=== PATIENT | male | born 1960 | race African-American/Black ===

== ENCOUNTER 2020-09-13 13:54 | Emergency (ER) | payer OTHER, MEDICAID ==
[~2020-09-13] VITALS: Ht 185.4 cm; Wt 89.9 kg
--- NOTE | 2020-09-13 14:26 | PHYS DOC ---
Past Medical History Past Medical History: HIV General Adult EDM: Chief Complaint: NECK PAIN HPI: HPI: Patient is a 60 year old male patient with history of HIV, lymphedema to the right lower extremity, who presents to the ED today complaining of moderate posterior neck pain and generalized headache, symptoms began yesterday when he got up. Patient describes the pain as sharp and constant. Denies anything relieving the pain, states the pain is worse when he rotates his neck. He is very upset with the triage questions refusing to answer some of them. He states his pain is similar to the last time he was tested for meningitis which was years ago and ended up positive for HIV but negative for meningitis. He states he does not have a primary care doctor neither does he have a doctor caring for his HIV but states usually sends him medicines for HIV. Denies any injury. Denies any pain radiating to bilateral upper extremities. Denies any chest pain or shortness of breath. States he took aspirin unknown milligram with no relief. Review of Systems: Review of Systems: Constitutional: Denies fever or chills. [] Eyes: Denies change in visual acuity. [] HENT: Denies nasal congestion or sore throat. [] Respiratory: Denies cough or shortness of breath. [] Cardiovascular: Denies chest pain or edema. [] GI: Denies abdominal pain, nausea, vomiting, bloody stools or diarrhea. [] : Denies dysuria. [] Musculoskeletal: Reports neck pain. Denies back pain Integument: Denies rash. [] Neurologic: Reports head pain, denies focal weakness or sensory changes. [] Psychiatric: Denies depression or anxiety. [] Heart Score: Risk Factors: Risk Factors: DM, Current or recent (<one month) smoker, HTN, HLP, family history of CAD, obesity. Risk Scores: Score 0 - 3: 2.5% MACE over next 6 weeks - Discharge Home Score 4 - 6: 20.3% MACE over next 6 weeks - Admit for Clinical Observation Score 7 - 10: 72.7% MACE over next 6 weeks - Early Invasive Strategies Current Medications: Current Medications Medications (Trade) Dose Ordered Sig/Maximo Start Time Stop Time Status Last Admin Dose Admin Dexamethasone Sodium Phosphate (Decadron) 10 mg 1X ONCE 09/13/20 14:30 09/13/20 14:31 UNV Physical Exam: PE: Constitutional: Well developed, well nourished, no acute distress, non-toxic appearance. [] HENT: Normocephalic, atraumatic, bilateral external ears normal, oropharynx moist, no oral exudates, nose normal. Though hard perform this exam because patient is not cooperating negative Kernig and Brudzinski signs Eyes: PERRLA, EOMI, conjunctiva normal, no discharge. [] Neck: Normal range of motion, mild midline cervical spine tenderness, supple, no stridor. Reproducible neck pain on rotation of the neck from side to side Cardiovascular:Heart rate regular rhythm, no murmur [] Lungs & Thorax: Bilateral breath sounds clear to auscultation [] Abdomen: Bowel sounds normal, soft, no tenderness, no masses, no pulsatile masses. [] Skin: Warm, dry, no erythema, no rash. [] Back: No tenderness, no CVA tenderness. [] Extremities: No tenderness, no cyanosis, no clubbing, ROM intact, +2 edema to the right lower extremity consistent with chronic lymphedema, left lower extremity is normal speaking Neurologic: Alert and oriented X 3, normal motor function, normal sensory function, no focal deficits noted. Cranial nerves II through XII intact. Psychologic: Affect normal, judgement normal, mood normal. [] EKG: EK interpreted by Dr. Rose sinus rhythm HR 69 no STEMI[] Radiology/Procedures: Radiology/Procedures: []PROCEDURE: CT HEAD AND CERVICAL SPINE WO Exam: CT head and cervical spine INDICATION: Headache and neck pain TECHNIQUE: Sequential axial images through the head and cervical spine were obtained without the administration of IV contrast. Comparisons: None FINDINGS: Head: No focal parenchymal lesion or hemorrhage is identified. There is no midline shift or sulcal effacement. No acute vascular territory infarction is identified. Gutierrez-white distinction is preserved. The ventricular system is within normal limits without compression hydrocephalus. The basal cisterns are well maintained. The visualized portions of the paranasal sinuses and mastoid air cells are well- pneumatized. No acute fractures. Cervical spine: Straightening of the cervical spine which may positional. Vertebral body heights are well-maintained. Fracture to the cervical spine is not identified. Multilevel spondylotic change in cervical spine with degenerative disc disease greatest at C5-C6 and C6-C7. Visualized paraspinal soft tissues are unremarkable. IMPRESSION: 1. No acute intracranial abnormality. 2. Negative CT C-spine for acute traumatic injury. Exposure: One or more of the following in the visualized dose reduction techniques were utilized for this examination: 1. Automated exposure control 2. Adjustment of the MA and/or KV according to patient size Use of iterative of reconstructive technique Electronically signed by: Jorden Waller MD (09/13/2020 3:07 PM) [facility] DICTATED and SIGNED BY: JORDEN WALLER MD DATE: 09/13/20 [id number] 0 Course & Med Decision Making: Course & Med Decision Making Pertinent Labs and Imaging studies reviewed. (See chart for details) This is a 60-year-old male patient presenting to the ED today with neck pain and headache, symptoms began yesterday when he woke up. Patient initially was insisting of having meningitis work-up but when you tell him this involves lumbar puncture he refuses the lumbar puncture. His vitals are normal with normal blood pressure, normal temperature. CT of the head is negative, CT of the neck is negative. CBC with a normal WBC, normal hemoglobin and hematocrit. CMP with no acute findings, lactic is normal, cardiac work-up was also done with normal EKG, normal troponin. Spoke to patient at length. He states he has no PCP for follow-up. We provided him a clinic list. We will discharge him to home. Recommended warm packs to the neck. Wrote him some pain medicines, muscle relaxer, steroids and NSAID to take at home. Tessy Disclaimer: Tessy Disclaimer: This electronic medical record was generated, in whole or in part, using a voice recognition dictation system. Departure Departure Impression: Primary Impression: Headache Qualified Codes: R51.9 - Headache, unspecified Additional Impression: Torticollis, acute Disposition: 01 DC HOME SELF CARE/HOMELESS Condition: STABLE Patient Instructions: Head Injury, Adult, Torticollis, Acute Additional Instructions: You were evaluated in the emergency room for headache and neck pain. Your work- up in the emergency room is negative for any acute findings. Please consider applying warm packs to your neck. Take the prescribed medications as ordered. Establish care with one of the primary care doctor. Scripts Hydrocodone Bit/Acetaminophen (HYDROCODONE-APAP 5-325 ) 1 Tab Tablet 1 TAB PO PRN Q6HRS PRN for PAIN, #20 TAB 0 Refills Prov: ANGLE CHAPA VERTICAL LATHE OPERATOR 09/13/20 Diclofenac Potassium (DICLOFENAC POTASSIUM) 50 Mg Tablet 1 TAB PO BID, #20 TAB 0 Refills Prov: ANGLE CHAPA VERTICAL LATHE OPERATOR 09/13/20 Cyclobenzaprine Hcl (CYCLOBENZAPRINE HCL) 10 Mg Tablet 1 TAB PO TID, #90 TAB Prov: ANGLE CHAPA APRN 09/13/20 Methylprednisolone (MEDROL) 4 Mg Tab.ds.pk 1 PKG PO UD, #1 PKG Prov: ANGLE CHAPA VERTICAL LATHE OPERATOR 09/13/20 ANGLE CHAPA APRN Sep 13, 2020 14:26
[2020-09-13 14:33] LABS: BASO % 1 % (0-3); EOS # 0.1 x10^3/uL (0.0-0.7); EOS % 1 % (0-3); HEMATOCRIT 45.1 % (39.0-53.0); LYMPH # 1.1 x10^3/uL (1.0-4.8); LYMPH % 23 % (24-48); MEAN CORPUSCULAR HEMOGLOBIN 31 pg (25-35); MEAN CORPUSCULAR HGB CONC 33 g/dL (31-37); MEAN CORPUSCULAR VOLUME 93 fL (79-100); MONO # 0.4 x10^3/uL (0.0-1.1); MONO % 8 % (0-9); NEUT # 3.4 x10^3/uL (1.8-7.7); NEUT % 68 % (31-73); PLATELET COUNT 259 x10^3/uL (140-400); RED BLOOD COUNT 4.85 x10^6/uL (4.30-5.70); RED CELL DISTRIBUTION WIDTH 14.3 % (11.5-14.5)
[2020-09-13] MEDS: DEXAMETHASONE SOD PHOS 20 MG/5 ML VIAL. IV ONE (14:37)
[2020-09-13 14:42] LABS: PROTHROMBIN TIME PATIENT 12.4 SEC (11.7-14.0)
[2020-09-13 14:50] LABS: CALCIUM 9.2 mg/dL (8.5-10.1); CREATININE 1.1 mg/dL (0.7-1.3); GFR 83.2; POTASSIUM 3.9 mmol/L (3.5-5.1)
[2020-09-13 14:56] LABS: ALBUMIN 3.8 g/dL (3.4-5.0); ALBUMIN/GLOBULIN RATIO 1.1 (1.0-1.7); MAGNESIUM 2.2 mg/dL (1.8-2.4); TOTAL BILIRUBIN 0.3 mg/dL (0.2-1.0); TOTAL PROTEIN 7.3 g/dL (6.4-8.2)
--- NOTE | 2020-09-13 15:10 | RAD ---
Exam: CT head and cervical spine INDICATION: Headache and neck pain TECHNIQUE: Sequential axial images through the head and cervical spine were obtained without the admi nistration of IV contrast. Comparisons: None FINDINGS: Head: No focal parenchymal lesion or hemorrhage is identified. There is no midline shift or sulcal effaceme nt. No acute vascular territory infarction is identified. Gutierrez-white distinction is preserved. The ventricular system is within normal limits without compression hydrocephalus. The basal cisterns are well maintained. The visualized portions of the paranasal sinuses and mastoid air cells are well-pneumatized. No acute fractures. Cervical spine: Straightening of the cervical spine which may positional. Vertebral body heights are well-maintained. Fracture to the cervical spine is not identified. Multilevel spondylotic change in cervical spine with degenerative disc disease greatest at C5-C6 and C6-C7. Visualized paraspinal soft tissues are unremarkable. IMPRESSION: 1. No acute intracranial abnormality. 2. Negative CT C-spine for acute traumatic injury. Exposure: One or more of the following in the visualized dose reduction techniques were utilized for this examination: 1. Automated exposure control 2. Adjustment of the MA and/or KV according to patient size Use of iterative of reconstructive technique Electronically signed by: Jorden Avery MD (09/13/2020 3:07 PM) [facility]
[2020-09-13 15:22] LABS: CREATINE KINASE 128 U/L (39-308)
[2020-09-13] MEDS ORDERED: METH4TAB2 PO (15:59)
[2020-09-13] MEDS ORDERED: CYCL10TA2 PO (15:59)
[2020-09-13] MEDS ORDERED: DICL50TA2 PO (15:59)
[2020-09-13] MEDS ORDERED: HYDR-2761 PO (15:59)
[2020-09-13 16:07] VITALS: BP 129/88
== END 2020-09-13 16:23 | disposition home or self-care (01) ==
LOC: ER 13:54
DX: M43.6 Torticollis (principal); R51.9 Headache, unspecified; M50.322 Other cervical disc degeneration at C5-C6 level; M50.323 Other cervical disc degeneration at C6-C7 level
CPT/HCPCS: 36415; 70450; 72125; 80053; 82553; 83605; 83735; 84145; 84484; 85025; 85610; 85730; 87040; 93005; 96374; 99285; J1100